=== PATIENT | male | born 1990 | race Caucasian/White ===

== ENCOUNTER 2023-03-14 21:53 | Emergency (ER) | payer BC, SELFPAY ==
[2023-03-14 22:04] VITALS: BP 100/79; PULSE 69; RESP 16; TEMP 36.9; O2SAT 100
--- NOTE | 2023-03-14 23:32 | ED.GENADULT ---
HPI - General Adult General Chief complaint: Unspecified Stated complaint: rectal pain Time Seen by Provider: 03/14/23 23:13 History of Present Illness HPI narrative: 32-year-old male here for evaluation of rectal pain x3 days. Patient states the pain is there when he is sitting and is worse when he is straining to have bowel movement. He states he has been somewhat constipated over the past 3 days and the pain began after he strained to have a bowel movement. He noticed small flecks of blood in his stool 3 days ago but none since. He denies any abdominal pain, fevers, chills, nausea or vomiting. He does not participate in anal sex and has no concerns for STIs. Related Data Home Medications Medication Instructions Recorded Confirmed disulfiram 250 mg tablet 250 mg PO DAILY 11/26/22 11/26/22 Allergies Allergy/AdvReac Type Severity Reaction Status Date / Time No Known Allergies Allergy Verified 03/14/23 23:27 Review of Systems Review of Systems: Gen.: Denies fevers or chills Eyes: Denies eye pain or visual change ENT: Denies congestion Respiratory: Denies shortness of breath or cough CV: Denies chest pain or palpitations GI: Denies abdominal pain nausea, emesis or diarrhea reports rectal pain. Denies burning, urgency, frequency or hematuria Musculoskeletal: Denies back pain or muscle pain Neuro: Denies numbness, tingling, weakness or focal weakness Skin: Denies rash Except as documented, all other systems reviewed and negative [facility] Past Medical History Medical History Anxiety Family History Family History Father Alcoholism Hypertension Heart problem Social History Social History Smoking status: Smoker, status unknown Smokeless tobacco user: chewing tobacco Second hand tobacco smoke exposure: Yes Alcohol intake: former Alcohol use details: Stopped 12 days ago Substance use: never Lack of Transportation: No Lack of Food: Never True Current Housing: I Have Housing Concerned About Future Housing: No Difficulty Paying Gas/Electric Bills: No Difficulty Paying for Meds: No Currently Unemployed: No Education: Decline to Answer Difficulty w/ Childcare or Family Care: No Agree to blood products: Yes Exam Narrative: Gen: Alert, anxious appearing, no acute distress Eyes: EOMI, no icterus Pulm: Respirations even and unlabored, symmetric thorax expansion, no audible stridor or visible cyanosis CV: Regular rate per telemetry GI: No distension, no voluntary/involuntary guarding : There is a external nonthrombosed hemorrhoid at the 3 o'clock position that is tender to palpation. No active bleeding from the rectum. Neuro: AOx4, moves all extremities without apparent difficulty or weakness, follows commands Skin: No jaundice, no visible bruising, rashes, lesions or wounds on exposed skin Psych: Normal mood/affect, insight/judgement good, adequate fund of knowledge, recent/remote memory intact Course Vital Signs Vital signs: Vital Signs Temperature 98.4 F 03/14/23 22:04 Pulse Rate 69 03/14/23 22:04 Respiratory Rate 16 03/14/23 22:04 Blood Pressure 100/79 03/14/23 22:04 Pulse Oximetry 100 03/14/23 22:04 Oxygen Delivery Room Air 03/14/23 22:04 Temperature 98.4 F 03/14/23 22:04 Pulse Rate 74 03/14/23 23:43 Respiratory Rate 14 03/14/23 23:43 Blood Pressure 104/66 03/14/23 23:43 Pulse Oximetry 98 03/14/23 23:43 Oxygen Delivery Room Air 03/14/23 22:04 Medical Decision Making [facility] Narrative Medical decision making narrative: 32-year-old male here for evaluation of rectal pain x3 days, worse with sitting and straining to have a bowel movement. Pain came on after he strained to have a bowel movement and noticed some flecks of blood in his stool at that time, non
[2023-03-14 23:43] VITALS: BP 104/66; PULSE 74; RESP 14; O2SAT 98
== END 2023-03-14 23:44 | disposition home or self-care (01) ==
PROVIDERS: Emergency Provider Physician Assistant; PCP Internal Medicine
DX: K64.4 Residual hemorrhoidal skin tags (principal); F17.220 Nicotine dependence, chewing tobacco, uncomplicated; R10.9 Unspecified abdominal pain
CPT/HCPCS: 99283

== ENCOUNTER 2023-10-08 12:13 | Observation (INO) | payer MEDICAID, SELFPAY ==
[2023-10-08] VITALS (41 sets, daily range): BP systolic 108–150; BP diastolic 54–97; PULSE 49–108; RESP 12–27; TEMP 36.2–36.4; O2SAT 96–100; BMI 20.2
--- NOTE | ~2023-10-08 | CT_ITS ---
. EXAMINATION: CT brain wo con DATE: 10/08/2023 13:45 INDICATION: Seizure. Ethanol withdrawal, tremors, diaphoresis. TECHNIQUE: Computed tomography (CT) of the head was performed without intravenous contrast. The mA wa s adjusted according to patient size. Iterative reconstruction technique was employed. Exam dose: 68 1.00 mGy-cm total exam DLP. COMPARISON: None No fracture or bone destruction of the cranial vault. The mastoid air cells and included paranasal sinuses are normal. FINDINGS: No intracranial mass lesion or hemorrhage or cerebrovascular accident. No midline shift or mass effect. Normal ventricular size. Normal singh-white matter differentiation. No subdural or epidur al hematoma is detected. IMPRESSION: Negative CT brain examination Reviewed, dictated and finalized at [facility]. Reviewed, dictated and finalized at location L. D WATCH ATTENDANT
--- NOTE | 2023-10-08 12:30 | ECG_ITS ---
Measurements Intervals [place] Rate: 88 P: 76 GA: 151 QRS: 75 QRSD: 122 T: 66 QT: 363 QTc: 441 Interpretive Statements SINUS RHYTHM INTRAVENTRICULAR CONDUCTION DELAY DELAYED PRECORDIAL R/S TRANSITION VOLTAGE CRITERIA FOR LVH NONSPECIFIC T-WAVE ABNORMALITY- HIGH LATERAL LEADS BASELINE ARTIFACT- I, II, AVR, AVL, AVF, V1-V6 BORDERLINE ECG NO PREVIOUS ECG AVAILABLE FOR COMPARISON Electronically Signed On 10-08-2023 13:01:41 DIRECTOR OUTPATIENT SERVICES by Harinder Kauffman D.O.
[2023-10-08 12:45] LABS: Basophils Percent Auto 0.2 % (0.2-1.2); Hematocrit 44.1 % (42.0-52.0); Immature Granulocyte Absolute 0.03 K/mm3 (0.00-0.031); Immature Granulocyte Percent A 0.3 % (0-0.5); Lymphocytes Absolute Auto 1.08 K/mm3 (0.9-3.2); Lymphocytes Percent Auto 10.9 % (18.3-44.2); Mean Corpuscular Hemoglobin 30.5 pg (26-34); Mean Corpuscular Volume 89.6 fl (80-100); Monocytes Absolute Auto 0.5 K/mm3 (0.1-0.6); Monocytes Percent Auto 5.3 % (2.6-8.5); Neutrophils Absolute Auto 8.3 K/mm3 (1.3-6.7); Neutrophils Percent Auto 83.3 % (45.5-73.1); Platelet Count Result 231 k/mm3 (150-375); Red Blood Count 4.92 M/mm3 (4.6-6.20); Red Cell Distribution Width 13.1 % (11.5-14.5); White Blood Count 9.9 K/mm3 (4.5-10.0)
--- NOTE | 2023-10-08 12:49 | ED.SEIZURE ---
HPI - Seizure General Chief Complaint: Seizure Stated Complaint: seizures/withdrawals from alcohol Time Seen by Provider: 10/08/23 12:49 History of Present Illness HPI Narrative: Patient is a 33-year-old male with history of alcohol use disorder here with concern for alcohol withdrawal. He states he has been a heavy drinker for most of his life. History is assisted by a father at bedside who lives with the patient. Over the last week or so he has been drinking 2 pt of vodka daily. His last alcohol intake was around 8:00 p.m. last night. He notes significant tremors and is concerned that he may be having seizures. He notes that he has some myoclonic jerking at night when he is attempting to go to sleep. Today he believes he had 4 seizures. In describing the seizures he notes that he lies on the floor, shakes, is profusely vomiting however he does not lose consciousness or have bowel or bladder incontinence. He stays awake for these entire episodes. Father at bedside does note that he has been in inpatient rehab multiple times in the past, last of these was around [facility] [place] last year, he had left a [facility] facility because he no longer wanted to be there. He does note that this time that he would like to be abstinent from alcohol. No cough or congestion. Related Data Home Medications Medication Instructions Recorded Confirmed disulfiram 250 mg tablet 250 mg PO DAILY 11/26/22 11/26/22 Allergies Allergy/AdvReac Type Severity Reaction Status Date / Time No Known Allergies Allergy Verified 03/14/23 23:27 Review of Systems Review of Systems: All systems reviewed & are unremarkable except as noted in HPI and below PMFSH Past Medical History Medical History Anxiety Family History Family History Father Alcoholism Hypertension Heart problem Social History Social History Smoking status: Smoker, status unknown Smokeless tobacco user: chewing tobacco Second hand tobacco smoke exposure: Yes Alcohol intake: former Alcohol use details: Stopped 12 days ago Substance use: never Lack of Transportation: No Lack of Food: Never True Current Housing: I Have Housing Concerned About Future Housing: No Difficulty Paying Gas/Electric Bills: No Difficulty Paying for Meds: No Currently Unemployed: No Education: Decline to Answer Difficulty w/ Childcare or Family Care: No Agree to blood products: Yes Exam Narrative: GENERAL: Well-appearing, well-nourished, and tremulous. HEAD: Normocephalic, atraumatic. EYES: PERRLA and EOMI. ENT: Nares clear. Mucous membranes dry, tongue fasciculations present. NECK: Supple. CHEST: Clear to auscultation. No respiratory distress. HEART: Regular rate and rhythm. Normal peripheral pulses. ABDOMEN: Soft, nontender, nondistended. EXTREMITIES: Normal range of motion. No edema. SKIN: Warm, diaphoretic, no rash. NEURO: No focal deficits. Alert and oriented x3. Course Course Emergency Course: Chart review performed. Patient here concern for alcohol withdrawal, last drink 8pm last night. Triage vitals show initial tachycardia which has improved, mild HTN. Patient seen evaluated, does appear to be in acute alcohol withdrawal. Unsure if he is actually having seizure-like activity prior to arrival given the fact that he remains awake during these episodes and does not appear to have anything focal during them either. They have been witnessed by father. No trauma. Will treat for suspected alcohol withdrawal. CIWA precautions ordered. Anticipate admission. Lab work and imaging reviewed, CBC within normal limits, electrolytes grossly normal aside from hypomagnesemia which I will replete. Troponin normal. ETOH negative. CT brain negative. Will reeval. Continues to be
[2023-10-08 12:56] LABS: Alanine Aminotransferase 50 U/L (6-50); Albumin Level 4.8 g/dL (3.5-5.1); Alkaline Phosphatase 65 U/L (38-126); Anion Gap 15 mmol/L (8-16); Aspartate Amino Transferase 58 U/L (17-59); Bilirubin,Total 1.4 mg/dL (0.2-1.3); Blood Urea Nitrogen 15 mg/dL (9-20); Calcium 9.4 mg/dL (8.4-10.2); Carbon Dioxide 25 mmol/L (22-30); Chloride 98 mmol/L (98-107); Estimated CRCL calculation 144 ml/min; Estimated Glomerular Filt Rate > 60; Glucose 136 mg/dL (65-110); Potassium 3.6 mmol/L (3.4-5.0); Sodium 138 mmol/L (137-145)
[2023-10-08] MEDS: SODIUM CHLORIDE 0.9% IV 1,000 ML 999 ML IV CONT (13:10)
[2023-10-08 13:25] LABS: Ethanol < 10 mg/dL (<10); Magnesium 1.5 mg/dL (1.6-2.3)
[2023-10-08 13:37] LABS: Troponin I < 0.012 ng/mL (0.000-0.034)
[2023-10-08 14:18] LABS: Glucose Point of Care 97 mg/dl (65-105)
[2023-10-08] MEDS: LORazepam INJ (*CRX) 2 MG/ML VIAL IV PUSH ×2 (15:08→22:00)
[2023-10-08] MEDS: MAGNESIUM SULF 2 GM/WATER 50ML 2 GM/50 ML BAG IVPB (15:26)
[2023-10-08 17:59] LABS: Glucose Point of Care 91 mg/dl (65-105)
[2023-10-08] MEDS: chlordiazePOXIDE (*CRX) 25 MG CAPSULE 50 MG PO (18:11)
--- NOTE | 2023-10-08 18:13 | PM.IMHP ---
H&P: HPI History of Present Illness Date/Time: 10/08/23 18:13 Chief Complaint: Seizure Narrative: This 33-year-old male patient with past medical history of anxiety and alcohol abuse is brought to the emergency room with concern for possible seizure related to alcohol withdrawal. Patient is a chronically heavy drinker stating he drinks daily and has for approximately 15 years. He notes he has recently been on a 1 week long binge drinking a 5th of vodka daily or more. Patient endorses that his last drink was around 8:00 p.m. last evening. Today he noted that he was having tremors in his upper extremities at rest and notes 4 times where he had generalized shaking of all extremities requiring him to lay on the floor. After these episodes he did not have prolonged periods of sleeping and he was able to speak through the entire episode. Patient has been in an out of alcohol rehab previously and relapses starting to drink again. In the emergency room workup was performed and is vital signs were noted to be stable. CBC and CMP were essentially unremarkable, his alcohol level is <10 at this time. His transaminases are normal, however his bilirubin is 1.4. Magnesium is 1.5. CT brain negative. He was administered Ativan and Librium. He is being admitted to the hospitalist service at this time for admission for potential alcohol withdrawal syndrome. Patient denies any symptoms of chest pain, dyspnea, nausea, vomiting, diarrhea at current time. Home medications have yet to be reviewed by nursing staff. These will need to be reconciled once performed. Review of Systems Review of Systems: All systems reviewed & are unremarkable except as noted in HPI and below PMFSH Past Medical History Medical History Anxiety Family History Family History Father Alcoholism Hypertension Heart problem Social History Social History Smoking status: Smoker, status unknown Smokeless tobacco user: chewing tobacco Second hand tobacco smoke exposure: Yes Alcohol intake: former Alcohol use details: Stopped 12 days ago Substance use: never Lack of Transportation: No Lack of Food: Never True Current Housing: I Have Housing Concerned About Future Housing: No Difficulty Paying Gas/Electric Bills: No Difficulty Paying for Meds: No Currently Unemployed: No Education: Decline to Answer Difficulty w/ Childcare or Family Care: No Agree to blood products: Yes Meds Home Medications and Allergies Home Medications Medication Instructions Recorded Confirmed Type disulfiram 250 mg tablet 250 mg PO DAILY 11/26/22 11/26/22 History trazodone 100 mg tablet 100 mg PO QHS PRN sleep #30 tabs 11/26/22 11/26/22 Rx hydrocortisone acetate 25 mg 25 mg RECTAL HS #12 ea 03/14/23 Rx rectal suppository (Anusol-HC) amoxicillin 875 mg-potassium 1 tablet PO Q12H #14 tabs 03/17/23 Rx clavulanate 125 mg tablet lisinopril 10 mg tablet 10 mg PO DAILY #30 tabs 07/06/23 Rx Allergies Allergy/AdvReac Type Severity Reaction Status Date / Time No Known Allergies Allergy Verified 03/14/23 23:27 Vital Signs Vital Signs - 24 hr 10/08/23 12:21 10/08/23 12:30 10/08/23 12:32 Pulse Rate 102 H 91 88 Respiratory Rate 20 17 Blood Pressure 150/97 H 142/86 H Pulse Oximetry 100 100 Oxygen Delivery Room Air 10/08/23 12:32 10/08/23 12:32 10/08/23 12:21 Pulse Rate Respiratory Rate Blood Pressure 150/97 H Pulse Oximetry 100 100 Oxygen Delivery Room Air Room Air 10/08/23 12:30 10/08/23 12:31 10/08/23 12:45 Pulse Rate 93 87 Respiratory Rate 18 17 Blood Pressure 142/86 H 132/94 H Pulse Oximetry 100 100 99 Oxygen Delivery 10/08/23 13:00 10/08/23 13:13 10/08/23 13:25 Pulse Rate Respiratory Rate Blood Pressure 141/88 H
[2023-10-08 19:12] LABS: Appearance Urine Clear (Clear); Bacteria Urine None Seen /hpf; Bilirubin Urine Negative (Negative); Blood Urine Negative (Negative); Color Urine Yellow (Yellow); Glucose Urine UA Negative (Negative); Ketones Urine 2+ mg/dL (Negative); Leukocyte Esterase Ur Trace LEU/UL (Negative); Nitrate Urine Negative (Negative); Protein Urine Trace mg/dL (Negative); RBC Urine 0-2 /hpf (0-2); Specific Grav Ur 1.024 (1.001-1.035); Squamous Epithelial Cell Urine None seen /hpf (Few); WBC Urine 0-5 /hpf
[2023-10-08 19:14] LABS: Add Urine Microscopic? YES
--- NOTE | 2023-10-08 19:26 | ADMGEN ---
This patient, Alfonso Ahn, was admitted to IMU Room 206-02. Patient/family oriented to hospital policies and general routines including ID bracelet, bed and alarms, visiting hours, pain management, procedures, bathroom and other care routines, personal items, smoking policy, room service/diet, and visiting hours. Information on how to activate the Rapid Response Team has been discussed. Patient/Family are encouraged to report perceived risks to care and to ask questions if they do not understand what they are told or what they should do.
[2023-10-08 19:32] LABS: Amphetamine Screen Urine Negative (Negative); Barbiturate Screen Urine Negative (Negative); Benzodiazepines Screen Urine Negative (Negative); Cannabinoid Screen Urine Positive (Negative); Cocaine Screen Urine Negative (Negative); Methadone Screen Urine Negative (Negative); Opiate Screen Urine Negative (Negative); Phencyclidine Screen Urine Negative (Negative)
[2023-10-09] VITALS (12 sets, daily range): BP systolic 112–138; BP diastolic 53–85; PULSE 43–85; RESP 16–19; TEMP 36.6–36.9; O2SAT 97–100
[2023-10-09 00:24] LABS: Glucose Point of Care 113 mg/dl (65-105)
[2023-10-09] MEDS: SODIUM CHLORIDE 0.9% IV 1,000 ML 100 ML IV CONT ×2 (00:57→11:59)
[2023-10-09] MEDS: chlordiazePOXIDE (*CRX) 25 MG CAPSULE 50 MG PO ×2 (00:59→12:00)
[2023-10-09 05:46] LABS: Magnesium 2.2 mg/dL (1.6-2.3)
[2023-10-09 08:11] LABS: Glucose Point of Care 107 mg/dl (65-105)
[2023-10-09] MEDS: lisinopriL 10 MG TABLET PO (09:04)
[2023-10-09] MEDS: THIAMINE HCL 200 MG/2 ML VIAL 100 MG IV PUSH (09:05)
[2023-10-09 12:01] LABS: Glucose Point of Care 81 mg/dl (65-105)
[2023-10-09] MEDS: LORazepam INJ (*CRX) 2 MG/ML VIAL IV PUSH ×2 (12:07→15:24)
--- NOTE | 2023-10-09 14:19 | PM.IMPN ---
Progress Note: A&P Assessment and Plan (1) Alcohol withdrawal: Qualifiers: Complication of substance-induced condition: uncomplicated Qualified Code(s): F10.930 - Alcohol use, unspecified with withdrawal, uncomplicated Code(s): F10.939 - Alcohol use, unspecified with withdrawal, unspecified Status: Acute Assessment and Plan: [facility] protocol initiated Telemetry Neuro checks Q2 hrs per [facility] protocol Check glucose q.6 hours Seizure precautions Check labs in a.m. Monitor vital signs Normal saline at 100 mL/hour Fall precautions Up with assist only P.r.n. benzodiazepines according to [facility] protocol P.r.n. antiemetics Check UA and urine drug screen Start Librium 50 mg q.6 hours Start Haldol 2 mg q.2 hours p.r.n. Thiamine 100 mg IV push daily Folic acid IV push x1 10/09: Hyperactivity and excitability noted on examination this morning although his CIWA has been 10. He is not distressed. He expresses a desire to maintain sobriety although notes he has failed o/p rehab 13 times. Consider taper on the librium starting tomorrow to q8h if doing well. Care coordination input will be appreciated - inpatient might be a consideration, had been worked up and accepted to [facility] per patient. Tox screen positive only cannabis. (2) Seizure-like activity: Code(s): R56.9 - Unspecified convulsions Status: Acute Assessment and Plan: See problem 1. Seizure precautions and fall precautions Benzodiazepines ordered in problem 1. CT head without any acute abnormalities. Low suspicion of actual seizures given the fact there was no postictal phase. And given the fact patient was able to communicate during the episode. 10/09: As noted above, low likelihood of seizure with his explanation of full recall and no loss of consciousness. Cont. ordered seizure precautions. (3) Hypomagnesemia: Code(s): E83.42 - Hypomagnesemia Status: Acute Assessment and Plan: Magnesium level 1.5. 2 g Mag sulfate ordered IV piggyback Check Mag level in a.m. 10/09: Resolved, mg. 2.2 this am. (4) ETOH abuse: Code(s): F10.10 - Alcohol abuse, uncomplicated Status: Acute Assessment and Plan: See problems 1. 10/09: Stable examination. Plan Regular diet. Disposition: Preferably with outpatient behavioral health services in place in the next 24-48 hours I would suspect. Time Spent With Patient Time: >[address] recorder, documentation, and examination/counseling. Subjective Date/time seen: 10/09/23 14:19 Interval history: This 33-year-old male patient with past medical history of anxiety and alcohol abuse is brought to the emergency room with concern for possible seizure related to alcohol withdrawal.? Patient is a chronically heavy drinker stating he drinks daily and has for approximately 15 years.? He notes he has recently been on a 1 week long binge drinking a 5th of vodka daily or more.? Patient endorses that his last drink was around 8:00 p.m. last evening.? Today he noted that he was having tremors in his upper extremities at rest and notes 4 times where he had generalized shaking of all extremities requiring him to lay on the floor.? After these episodes he did not have prolonged periods of sleeping and he was able to speak through the entire episode.? Patient has been in an out of alcohol rehab previously and relapses starting to drink again.? In the emergency room workup was performed and is vital signs were noted to be stable.? CBC and CMP were essentially unremarkable, his alcohol level is <10 at this time.? His transaminases are normal, however his bilirubin is 1.4.? Magnesium is 1.5.? CT brain negative.? He was administered Ativan and Librium.? He is being admitted to the hospitalist service at this time for admission for potential alcohol withdrawal syndrome.? Patient denies any symptoms of chest pain, dyspnea, nausea, vomiting, diarrhe
--- NOTE | 2023-10-09 16:30 | PC.NURSE ---
Patient unable to redirect. Patient states I need out of here. I can't just sit here. Patient taken around unit in wheel chair with 2 staff members for approximately 15 minutes to socialize with staff and take a break from being in room. After walk around the unit pt reports being tired and would like to go back to room. Pt arrived back in room and reports he is going to leave AMA. Pt stumbling around frantically picking up and dropping items such as phone chargers and clothes. ABHAY Javier made aware. Yaya at bedside explaining potential outcomes of patient leaving at this point. Patient verbalizes that he is aware if risks of seizure and . States I'm sorry, I just can't stay . Patient escorted by staff to door of hospital with all belongings.
== END 2023-10-09 16:44 | disposition left against medical advice (07) ==
LOC: ANHED 13:45 → ANHIMU 18:43
PROVIDERS: Nurse Practitioner Adult Health; Admitting Provider Student in an Organized Health Care Education/Training Program; Emergency Provider Student in an Organized Health Care Education/Training Program; PCP Internal Medicine; Visit Provider Student in an Organized Health Care Education/Training Program
DX: F10.130 Alcohol abuse with withdrawal, uncomplicated (principal); Y90.0 Blood alcohol level of less than 20 mg/100 ml; R56.9 Unspecified convulsions; E83.42 Hypomagnesemia; I45.4 Nonspecific intraventricular block; F41.9 Anxiety disorder, unspecified; F17.290 Nicotine dependence, other tobacco product, uncomplicated; Z79.899 Other long term (current) drug therapy; Z81.1 Family history of alcohol abuse and dependence
CPT/HCPCS: 36415; 70450; 80053; 80307; 81001; 82948; 83735; 84484; 85025; 93005; 96361; 96365; 96374; 96375; 96376; 99285; A9270; G0378; G0379; J2060; J3411; J3475; J7030

== ENCOUNTER 2025-02-19 06:37 | Emergency (ER) | payer SELFPAY ==
[2025-02-19 06:35] VITALS: BP 157/102; PULSE 106; RESP 28; TEMP 36.3; O2SAT 94
[2025-02-19 06:47] VITALS: BP 141/95; PULSE 99; RESP 16; O2SAT 98
--- NOTE | 2025-02-19 07:24 | PC.NURSE ---
pt reports not wanting to be seen, just want to go home pt removed IV, bleeding controlled. pt put on own clothes and ambulated to exit with steady gait.
--- OUTSIDE RECORDS SUMMARY | 2025-02-19 07:34 | XMS_ITS | Clinical Summary ---
Author Organization [facility] Address [address] [place] [address] Care Team Providers Care Cloth Wire Weaver Name Role Phone None, Physician Primary Care Provider Unavailabl e Source Comments [facility],non-owned Affiliates and Associated Physician Practices is amultiple site organization consisting of ambulatory clinics and hospital sitesin [place], [place], [place] and [place]. This disclosure is being madepursuant to the Care Everywhere program and may not contain all information available regarding this patient. Last updated 18.[facility] [employer] Allergies No known active allergies Medications Be aware that medications may not be up to date on this document. Always verify current medications with the patient. No known medications Social History Tobacco Use Types Packs/Day Years Used Date Smoking Tobacco: Never Smokeless Tobacco: Never Tobacco Cessation:Counseling Given: Not Answered Alcohol Use Standard Drinks/Week Comments Yes 0 (1 standard drink = 0.6 oz pur e alcohol) AUDIT-C Answer Date Recorded Q1: How often do you have a drink containing alcohol? 4 or more times a week 04/25/2024 Q2: How many drinks containi ng alcohol do you have on a typical day when you are drinking? Patient does not drink Q3: How often do you have si x or more drinks on one occasion? Daily or almost daily 04/25/2024 Sex and Gender Information Value Date Recorded Sex Assigned at Not on file Gender Identity Not on file Sexual Orientation Not on file Last Filed Vital Signs Vital Sign Reading Time Taken Comments Blood Pressure 145/108 04/25/2024 7:58 PM CDT Pulse 93 04/25/2024 7:58 PM CDT Temperature 36.9 C (98.4 F) 04/25/2024 7:58 PM CDT Respiratory Rate 18 04/25/2024 7:58 PM CDT Oxygen Saturation 97% 04/25/2024 7:58 PM CDT Inhaled Oxygen Concentration - - Weight 74.8 kg (165 lb) 04/25/2024 2:41 PM CDT Height - - Body Mass Index - - Plan of Treatment Health Maintenance Due Date Last Done Comments HIV SCREENING 2005 HEPATITIS C SCREENING 08/16/2008 DTAP/TDAP/TD VACCINES (1 - Tdap) 2009 HEPATITIS B VACCINE (1 of 3 - 19+ 3-dose series) 2009 COVID-19 VACCINE (1 - 2023-2 5 season) 2024 INFLUENZA VACCINE (#1) 2024 DEPRESSION SCREENING 11/23/2024 ZOSTER VACCINE (1 of 2) 2040 HIB VACCINE Aged Out No longer eligi ble based on patient's age to complete this topic HPV VACCINE Aged Out No longer eligi ble based on patient's age to complete this topic MENINGOCOCCAL (Group B) VACC INE SHARED DECISION-MAKING Aged Out No longer eligibl e based on patient's age to complete this topic MENINGOCOCCAL GROUPS A/C/Y/W VACCINE Aged Out No longer eligible b ased on patient's age to complete this topic PNEUMOCOCCAL VACCINE Aged Out No long er eligible based on patient's age to complete this topic Care Teams Cloth Wire Weaver Relationship Specialty Start Date End Date None, Physician [address] [place] [address] PCP - General 04/25/24
--- OUTSIDE RECORDS SUMMARY | 2025-02-19 07:34 | XMS_ITS | Clinical Summary ---
Author Organization [facility] [place] [address] [address] Care Team Providers Care Masking Machine Feeder Name Role Phone Unavailable Primary Care Provider Unavailabl e Social History Tobacco Use Types Packs/Day Years Used Date Smoking Tobacco: Never Assessed Sex and Gender Information Value Date Recorded Sex Assigned at Not on file Legal Sex Male 9:59 AM PST Gender Identity Not on file Sexual Orientation Not on file Plan of Treatment Not on file
--- OUTSIDE RECORDS SUMMARY | 2025-02-19 07:34 | XMS_ITS | Clinical Summary ---
Author Organization [facility] Address [address] [place] [id number] Care Team Providers Care Hospice Bereavement Coordinator Name Role Phone Unavailable Primary Care Provider Unavailabl e Social History Tobacco Use Types Packs/Day Years Used Date Smoking Tobacco: Never Assessed Sex and Gender Information Value Date Recorded Sex Assigned at Not on file Legal Sex Male 7:57 PM CDT Gender Identity Not on file Sexual Orientation Not on file Last Filed Vital Signs Vital Sign Reading Time Taken Comments Blood Pressure 150/90 06/29/2014 2:31 PM CDT Pulse 98 06/29/2014 2:31 PM CDT Temperature - - Respiratory Rate - - Oxygen Saturation - - Inhaled Oxygen Concentration - - Weight 83.9 kg (185 lb) 06/29/2014 2:31 PM CDT Height 185.4 cm (6' 1 ) 06/29/2014 2:31 PM CDT Body Mass Index 24.41 06/29/2014 2:31 PM CDT Plan of Treatment Health Maintenance Due Date Last Done Comments Annual Physical 1993 Hepatitis C 2008 DTaP, Tdap and Td Vaccines ( 1 - Tdap) 2009 Hepatitis B Vaccines (1 of 3 - 19+ 3-dose series) 2009 COVID-19 Vaccine (2023-2 5 season) 2024 Influenza Adult (#1) 2024 HPV Vaccines Aged Out No longer eligi ble based on patient's age to complete this topic Meningococcal B Vaccine Aged Out No l onger eligible based on patient's age to complete this topic Meningococcal Vaccine Aged Out No minesh rosy eligible based on patient's age to complete this topic Pneumococcal Vaccine: Pediat rics (0 to 5 Years) and At-Risk Patients (6 to 64 Years) Aged Out No longer eligible b ased on patient's age to complete this topic RSV Immunizations Under 20 Months Aged Out No longer eligible based on patient's age to complete this topic
--- OUTSIDE RECORDS SUMMARY | 2025-02-19 07:34 | XMS_ITS | Encounter Summary ---
Author Organization [facility] [place] Address [address] [place] [address] Care Team Providers Care Certified Medical Assistant Name Role Phone Unavailable Primary Care Provider Unavailabl e Prior Encounters Date Type Department Care Team Description 12/12/2019 Converted 13x Documents [facility] [id number] [place] [address] <No scans attached> 12/12/2019 Converted 13x Documents [facility] [address], [facility] [address] [place] [address] <No scans attached> 12/12/2019 Converted CPS Chart Documents [facility] [address] [place] [address] <No scans attached> Plan of Treatment Not on file Procedures Procedure Name Priority Date/Time Associated Diagnosis Comments MISSED APPOINTMENT Routine 03/26/2016 1: 00 AM MDT MISSED APPOINTMENT Routine 03/26/2016 1: 00 AM MDT CANCELLED APPOINTMENT Routine 10/13/2015 1:00 AM MST 10 IMPLANT CROWN UNIT Routine 10/09/2015 1:00 AM MST 10 IMPLANT Routine 10/09/2015 1:00 AM MST 7 CEREC CROWN ANT Routine 10/09/2015 1:0 0 AM MST 9 CROWN PFM ANT Routine 10/09/2015 1:00 AM MST 8 CROWN PFM ANT Routine 10/09/2015 1:00 AM MST ADJUNCTIVE PRE-DIAGNOSTIC TEST THAT AIDS IN DETECTION OF MUCOSAL ABNORMALITIES Routine 10/09/2015 1:00 AM MST COMPREHENSIVE ORAL EVALUATION - NEW OR ESTABLISHED PATIENT Routine 10/09/2015 1:00 AM MST ORAL HYGIENE INSTRUCTIONS Routine 2014 1:00 AM MST PROPHYLAXIS - ADULT Routine 10/09/2015 1 :00 AM MST PANORAMIC RADIOGRAPHIC IMAGE Routine 10/09/2015 1:00 AM MST INTRAORAL - COMPREHENSIVE SERIES OF RADIOGRAPHIC IMAGES Routine 10/09/2015 1:00 AM [facility] INTRAORAL PHOTO Routine 10/09/2015 1:00 AM [facility] INTRAORAL PHOTO Routine 10/09/2015 1:00 AM [facility] INTRAORAL PHOTO Routine 10/09/2015 1:00 AM [facility] INTRAORAL PHOTO Routine 10/09/2015 1:00 AM [facility] 30 O COMPOSITE FILLING Routine 5 1:00 AM [facility] Visit Diagnoses Not on file
== END 2025-02-19 08:49 | disposition left against medical advice (07) ==
LOC: ANHED 07:31
PROVIDERS: PCP Nurse Practitioner
DX: S09.90XA Unspecified injury of head, initial encounter (principal)
CPT/HCPCS: 99199